=== PATIENT | male | born 1990 | race Caucasian/White ===

== ENCOUNTER 2018-07-21 23:51 | Emergency (ER) | payer OTHER ==
[2018-07-22] MEDS ORDERED: NS 1,000 ML IV ONE ×2 (00:10→00:15)
--- NOTE | 2018-07-22 00:11 | EDPHY ---
H & P Stated Complaint: SYNCOPAL EPISODE, HIT HEAD, VOMITED Time Seen by Provider: 07/22/18 00:11 HPI/ROS: HPI CHIEF COMPLAINT: Syncope with head strike HISTORY OF PRESENT ILLNESS: 28-year-old male otherwise healthy no significant medical history does not take any daily medications presents to the emergency room after he had a syncopal episode in his bathroom with head strike. Patient states that been sleeping recently in getting very little sleep over the past week he decided to take sleep aid 4 tablets of Benadryl. He states he became nauseous after doing this. He states he went to his bathroom and bent over the toilet vomited multiple times. He then got up got very lightheaded and states he does not really remember anything after that. He had head strike. His roommates heard a loud thud in the bathroom and recovered in. He arrives to the emergency room stating he is feeling better came by private vehicle he denies any chest breath or palpitations. Does have a headache on left side of his head where he struck his forehead. Otherwise atraumatic head and neck exam. He has a GCS 15, no acute distress. Past Medical History: Denies significant medical history Past Surgical History: Denies significant surgical history Social History: Denies drugs alcohol tobacco. Family History: Noncontributory ROS REVIEW OF SYSTEMS: 10 Systems were reviewed and negative with the exception of the elements mentioned in the history of present illness. Exam Constitutional triage nursing summary reviewed, vital signs reviewed, awake/ alert. Eyes normal conjunctivae and sclera, EOMI, PERRLA. HENT head/neck: Atraumatic except for left forehead hematoma. Respiratory clear to auscultation bilaterally, normal breath sounds, no respiratory distress, no wheezing. Cardiovascular rate normal, regular rhythm, no murmur, no edema, distal pulses normal. Gastrointestinal soft, non-tender, no rebound, no guarding, normal bowel sounds, no distension, no pulsatile mass. Genitourinary no CVA tenderness. Musculoskeletal no midline vertebral tenderness, full range of motion, no calf swelling, no tenderness of extremities, no meningismus, good pulses, neurovascularly intact. Skin pink, warm, & dry, no rash, skin atraumatic. Neurologic awake, alert and oriented x 3, AAOx3, moves all 4 extremities equally, motor intact, sensory intact, CN II-XII intact, normal cerebellar, normal vision, normal speech. Psychiatric normal mood/affect. Heme/Lymph/Immune no lymphadenopathy. Differential Diagnosis: Includes but is not limited to in a particular order vasovagal syncope, orthostatic syncope, dehydration, electrolyte disturbance, nausea vomiting, intracranial bleed, skull fracture, closed head injury. Medical Decision Making: Plan for this patient IV establishment IV fluid bolus , EKG and troponin, basic blood work, electrolytes, CT scan head without contrast and re-evaluate. Re-evaluation: EKG interpretation by me on record in [facility] system. Impression time of EKG 0016: Sinus tach rate of 108, no evidence of cardiac arrhythmia and I do not appreciate acute ischemia. Point care troponin 0.00. CT scan head without contrast negative for acute intracranial abnormality. No bleed. Faxed me by direct Radiology at 12:40 a.m.. Chest x-ray one view reviewed by myself. Negative for acute cardiopulmonary disease. EKG interpretation by me on record in [facility] system. Impression time of EKG 5:29 a.m., sinus rhythm rate of 88 without any signs of acute ischemia. No signs of cardiac arrhythmia. 0718AM: Patient resting comfortably no acute distress. Patient ambulated well throughout the emergency without difficulty. Patient denies any chest pain or shortness of breath. 2 troponins are negative. EKGs are stable without any acute ischemia. He had a syncopal event after he was vomiting multiple times in his bathroom. He took a sleep Aid which included Benadryl this made him nauseous and he vomited multiple times. He then stood up and had a syncopal episode with head strike. He denies any palpitations or chest pain. Patient's workup here in the emergency room for syncope is been rather unremarkable. I do encourage the patient to drink lots of fluids stay well-hydrated I encouraged patient to rest. I encouraged him to return emergency room if develops syncope shortness of breath or not doing well. Patient is comfortable this plan. Patient is CT scan of his head that showed no acute traumatic injury Chest x-ray reviewed negative for acute cardiopulmonary disease. Patient p.o. Challenge well and ambulated well. Source: Patient - Personal History Current Tetanus Diphtheria and Acellular Pertussis (TDAP): Yes - Medical/Surgical History Hx Asthma: No Hx Chronic Respiratory Disease: No Hx Diabetes: No Hx Cardiac Disease: No Hx Renal Disease: No Hx Cirrhosis: No Hx Alcoholism: No Hx HIV/AIDS: No Hx Splenectomy or Spleen Trauma: No Other PMH: History of previous left fifth metacarpal fracture. MEDICAL HEMIPLEGIC MIGRAINES A CHILD - Social History Smoking Status: Never smoked Constitutional: Initial Vital Signs Temperature (C) 36.5 C 07/21/18 23:56 Heart Rate 111 H 07/21/18 23:56 Respiratory Rate 16 07/21/18 23:56 Blood Pressure 162/102 H 07/21/18 23:56 O2 Sat (%) 93 07/21/18 23:56 O2 Delivery Mode Room Air Allergies/Adverse Reactions: No Known Allergies Allergy (Verified 07/21/18 23:56) Home Medications: Medication Instructions Recorded NK [No Known Home Meds] 07/21/18 Medical Decision Making - Data Points Laboratory Results: Laboratory Results 07/22/18 00:25 07/22/18 00:25 Medications Given: Discontinued Medications Sodium Chloride (Ns) 1,000 mls @ 0 mls/hr IV EDNOW ONE; Wide Open PRN Reason: Protocol Stop: 07/22/18 00:11 Last Admin: 07/22/18 00:23 Dose: 1,000 mls Sodium Chloride (Ns) 1,000 mls @ 0 mls/hr IV ONCE ONE PRN Reason: Wide Open Stop: 07/22/18 00:16 Last Admin: 07/22/18 00:23 Dose: 1,000 mls Ondansetron HCl (Zofran) 4 mg IVP EDNOW ONE Stop: 07/22/18 00:16 Last Admin: 07/22/18 00:27 Dose: Not Given Point of Care Test Results: Chemistry 07/22/18 07/22/18 05:31 00:27 POC Troponin I 0.00 ng/mL ng/mL 0.00 ng/mL ng/mL (0.00-0.08) (0.00-0.08) Departure - Departure Disposition: Home, Routine, Self-Care Clinical Impression: Syncope, Head injury, Concussion Condition: Good Instructions: Syncope (ED), Concussion (ED), Head Injury (ED) Additional Instructions: 1. Drink lots of fluids stay well-hydrated 2. Return to the emergency room if worsening symptoms 3. Return to the emergency room if you pass out, or not doing well. 4. Rest today, no strenuous activity. Referrals: NONE *PRIMARY CARE P,. [Primary Care Provider] - As per Instructions
[2018-07-22] MEDS ORDERED: ONDANSETRON 4 MG/2 ML VIAL IVP ONE (00:15)
[2018-07-22 01:04] LABS: PLATELET COUNT 316 10^3/uL (150-400)
[2018-07-22 07:45] VITALS: BP 149/97
--- NOTE | 2018-07-24 07:33 | CPEKG ---
Test Reason : OPEN Blood Pressure : / mmHG Vent. Rate : 088 BPM Atrial Rate : 088 BPM P-R Int : 180 ms QRS Dur : 119 ms QT Int : 403 ms P-R-T Axes : 048 -46 068 degrees QTc Int : 488 ms Sinus rhythm Incomplete RBBB and LAFB Confirmed by Rl Vazquez ([id number]) on 07/24/2018 7:33:24 AM Referred By: Rl Vazquez Confirmed By:Rl Vazquez
--- NOTE | 2018-07-24 07:34 | CPEKG ---
Test Reason : OPEN Blood Pressure : / mmHG Vent. Rate : 108 BPM Atrial Rate : 108 BPM P-R Int : 176 ms QRS Dur : 119 ms QT Int : 378 ms P-R-T Axes : 049 -55 084 degrees QTc Int : 507 ms Sinus tachycardia Left anterior fascicular block ST elevation, consider inferior injury Confirmed by Rl Vazquez ([id number]) on 07/24/2018 7:33:25 AM Referred By: Rl Vazquez Confirmed By:Rl Vazquez
== END 2018-07-22 07:30 | disposition home or self-care (01) ==
DX: S06.0X9A Concussion with loss of consciousness of unspecified duration, initial encounter (principal); R55 Syncope and collapse; E86.9 Volume depletion, unspecified; W19.XXXA Unspecified fall, initial encounter; Y92.002 Bathroom of unspecified non-institutional (private) residence as the place of occurrence of the external cause; Y99.9 Unspecified external cause status; Y93.9 Activity, unspecified
CPT/HCPCS: 84484-ER; G0480